=== PATIENT | female | born 1985 | race Caucasian/White ===

== ENCOUNTER 2017-08-09 11:21 | Day surgery (SDC) | payer OTHER ==
[2017-08-09] MEDS ORDERED: Lactated Ringers 1,000 ML IV ONE (11:22)
[2017-08-09] MEDS ORDERED: solu-MEDROL 40 MG IV ONE (11:22)
[2017-08-09] MEDS ORDERED: Xylocaine 1% Vial 30 ML PF IJ ONE (11:22)
[2017-08-09] MEDS ORDERED: DIPRIVAN 200 MG/20 ML IV ONE (11:22)
--- NOTE | 2017-08-09 14:13 | XRAY ---
37 seconds fluoroscopy time in surgery for right L5 BREANNA.
--- NOTE | 2017-08-09 14:14 | XRAY ---
Indication: Right L5 BREANNA. Intraoperative fluoroscopy was provided for 37 seconds. Single digital spot image submitted for interpretation demonstrates a single posterior spinal needle tip projecting over the right L5-S1 facet. Small amount contrast injected for needle tip placement. Correlate with intraoperative findings/report.
--- NOTE | 2017-08-10 10:00 | OP ---
DATE OF PROCEDURE: 08/09/2017 1214 SURGEON: Giovany King D.O. PREOPERATIVE DIAGNOSES: Degenerative lumbar spine disease, lumbar spondylosis. POSTOPERATIVE DIAGNOSES: Degenerative lumbar spine disease, lumbar spondylosis. PROCEDURE PERFORMED: Right L5 epidural steroid injection under fluoroscopic guidance. DESCRIPTION OF PROCEDURE: The patient was taken to the operating room and laid in the prone position on the table. Skin over the injection site was prepped and draped in sterile fashion. Under fluoroscope bony anatomy at the targeted injection site was visualized. Induction agent was given as per anesthesia while vital signs were monitored. Local anesthetic agent was introduced to anesthetize the skin in the subcutaneous tissue through injection site. Local anesthetic agent used 1 cc of preservative-free Solu-Medrol and 10 cc of 1% preservative-free lidocaine was injected into each of the target epidural space. Under fluoroscopic guidance a #22-gauge standard spinal needle was advanced into the target epidural space. While the needle was being removed normal saline was simultaneously infiltrated to avoid sterile needle tract. Skin was cleansed with alcohol and then a bandage was applied. The preoperative pain level was 10 out of 10 and the postoperative pain level was 2 out of 10. No complications or adverse consequences were observed. The patient was returned to the holding area until stabilized before discharge to home. The patient will be followed up within ten days after the injection for reevaluation.
== END 2017-08-09 12:50 | disposition home or self-care (01) ==
LOC: SDC-PAIN 11:21
PROVIDERS: ATTEND Internal Medicine
DX: M54.5 Low back pain (principal); M51.16 Intervertebral disc disorders with radiculopathy, lumbar region; M46.96 Unspecified inflammatory spondylopathy, lumbar region; Z79.891 Long term (current) use of opiate analgesic
CPT/HCPCS: 64483; 72020; 77003; J2001; J2704; J2920; Q9967

== ENCOUNTER 2019-07-24 16:01 | Emergency (ER) | payer BC ==
[2019-07-24 16:20] VITALS: PULSE 100; O2SAT 99
--- NOTE | 2019-07-24 16:28 | ERPHSYRPT ---
- History of Present Illness Time Seen by Provider: 07/24/19 16:13 Source: patient Exam Limitations: no limitations Patient Subjective Stated Complaint: pt woke this morning and her left ring finger was swollen and her rings would not come off, pt attempted various ways to remove and came to the ER to have them cut off Triage Nursing Assessment: Pt came to the ER to have her rings removed, vitals wnl, left ring finger swollen and red, has a wedding band and engagement ring on the finger, capillary refill normal, no other issues at this time Physician History: 33 years old female presented in the ER with a chief complaint of finger swelling and inability to take off her wedding ring from left fourth digit because of swelling. She is complaining of dull aching pain and more swelling distal to the ring. She also has swelling in other fingers as well. Patient wants ring to be cut off. Before I went to the room patient ring was cut off by an RN. Has no difficulty movements of fingers but some tightness in all fingers. Denies any history of congestive heart failure or shortness of breath but does report oftentimes her legs get swollen which goes away on its own. Not taking any diuretics. Allergies/Adverse Reactions: No Known Drug Allergies Allergy (Verified 07/24/19 16:20) Home Medications: Gabapentin [Neurontin] 300 mg PO TID 07/17/17 [History] Dextroamphetamine/Amphetamine [Adderall 20 mg Tablet] 20 mg PO DAILY 07/24/19 [ History] Hx Influenza Vaccination/Date Given: No Hx Pneumococcal Vaccination/Date Given: No Travel Risk - International Travel Have you traveled outside of the country in past 3 weeks: No Have you or anyone close to you been diagnosed with or: No Do your reside in a community with a known COVID-19 case?: Yes If Yes where:: [place] - Coronavirus Screening Has patient experienced Coronavirus symptoms: No - Review of Systems Constitutional: No Symptoms Eyes: No Symptoms Ears, Nose, & Throat: No Symptoms Respiratory: No Symptoms Cardiac: No Symptoms Abdominal/Gastrointestinal: No Symptoms Skin: No Symptoms Neurological: No Symptoms Psychological: No Symptoms Endocrine: No Symptoms Hematologic/Lymphatic: No Symptoms Immunological/Allergic: No Symptoms - Past Medical History Pertinent Past Medical History: Yes Neurological History: No Pertinent History ENT History: No Pertinent History Cardiac History: No Pertinent History Respiratory History: No Pertinent History Endocrine Medical History: No Pertinent History Musculoskeletal History: Arthritis GI Medical History: No Pertinent History History: No Pertinent History Psycho-Social History: No Pertinent History Female Reproductive Disorders: No Pertinent History - Past Surgical History Past Surgical History: Yes Neuro Surgical History: No Pertinent History Cardiac: No Pertinent History Respiratory: No Pertinent History Gastrointestinal: No Pertinent History Genitourinary: No Pertinent History Musculoskeletal: No Pertinent History Female Surgical History: Section Other Surgical History: c-sections times 3 - Social History Smoking Status: Current every day smoker How long have you smoked: 10 years Exposure to second hand smoke: Yes Drug Use: none Patient Lives Alone: No - Female History Hx Now: No - Nursing Vital Signs Nursing Vital Signs: Initial Vital Signs Temperature 98.5 F 07/24/19 16:07 Pulse Rate 100 H 07/24/19 16:07 Blood Pressure 141/109 07/24/19 16:07 O2 Sat by Pulse Oximetry 99 07/24/19 16:07 Pain Scale Pain Intensity 2 - Physical Exam General Appearance: no apparent distress Eyes, Ears, Nose, Throat Exam: normal ENT inspection Neck Exam: normal inspection, supple, full range of motion Cardiovascular/Respiratory Exam: normal breath sounds, regular rate/rhythm Shoulder Exam: normal inspection Elbow/Forearm Exam: normal inspection, non-tender, no evidence of injury Wrist Exam: normal inspection, non-tender, no evidence of injury Hand Exam: normal ROM, swelling (All fingers mild to moderate swelling but more on the left fourth digit with small area of abrasion, ring is off.) Neuro/Tendon Exam: normal sensation Mental Status Exam: alert, oriented x 3 Skin Exam: normal color, abrasion SpO2 Interpretation: normal SpO2: 99 O2 Delivery: Room Air - Course Nursing assessment & vital signs reviewed: Yes - Progress Progress: improved, pain not gone completely, re-examined Progress Note: 07/24/19 16:26 Patient presented in the ER with swollen fingers and inability to take off her ring. Ring is cut by RN before I went in the room. She is able to move fingers without any limitation. She does have some swelling. She is advised to keep it elevated, low-salt diet and outpatient follow-up for further evaluation. She has a small abrasion and bandages applied. Discussed signs symptoms of worsening needing return which she seems understanding. Stable for discharge. Counseled pt/family regarding: need for follow-up - Departure Departure Disposition: Home Clinical Impression: Swelling of finger Condition: Stable Critical Care Time: No Referrals: LOGAN BRICEÑO [Primary Care Provider] - Follow Up with PCP/3 days Additional Instructions: Take Tylenol as needed for pain. Keep it elevated. Apply ice. Low-salt diet. Follow-up with primary care for reevaluation. Return to ER for any worsening.
[2019-07-24 16:39] VITALS: BP 118/81
== END 2019-07-24 16:39 | disposition home or self-care (01) ==
LOC: ED 16:01
DX: M79.89 Other specified soft tissue disorders (principal); W23.0XXA Caught, crushed, jammed, or pinched between moving objects, initial encounter; Y92.89 Other specified places as the place of occurrence of the external cause
CPT/HCPCS: 99283

== ENCOUNTER 2024-07-30 06:32 | Day surgery (SDC) | payer OTHER ==
[2024-07-30] MEDS ORDERED: Lactated Ringers 1,000 ML IV ONE (07:14)
[2024-07-30] MEDS ORDERED: CEFAZOLIN 2 GM/100 ML NaCl 2 GM/100 ML IVPB IV ONE (07:14)
[2024-07-30] MEDS ORDERED: CEFAZOLIN IV ONE (07:15)
[2024-07-30] MEDS: Lactated Ringers 1,000 ML IV SCH (07:15)
[2024-07-30] MEDS ORDERED: SODIUM CHLORIDE IV ONE (07:15)
[2024-07-30] MEDS: CEFAZOLIN 2 GM/100 ML NaCl 2 GM/100 ML IVPB IV SCH (07:16)
[2024-07-30 07:17] LABS: HCG URINE TEST NEGATIVE (NEGATIVE)
[2024-07-30] MEDS ORDERED: Sodium Chloride 0.9% 1000 ML 1,000 ML ONE (08:56)
[2024-07-30] MEDS ORDERED: dexAMETHasone sodium phosphate ONE (09:02)
[2024-07-30] MEDS ORDERED: TORAdol 30 mg Injection ONE (09:02)
[2024-07-30] MEDS ORDERED: propofoL IV ONE (09:02)
[2024-07-30] MEDS ORDERED: Zofran 4 MG/2 ML VIAL ONE (09:02)
[2024-07-30 09:47] VITALS: PULSE 75; RESP 16; TEMP 96.3
[2024-07-30 10:04] VITALS: BP 125/90; O2SAT 97
--- NOTE | 2024-08-01 10:45 | OP ---
SURGERY DATE/TIME: 07/30/2024 [id number] PREOPERATIVE DIAGNOSIS: Menorrhagia. POSTOPERATIVE DIAGNOSIS: Menorrhagia. PROCEDURE: Hysteroscopy, dilation and curettage, with NovaSure ablation. SURGEON: Fabiano Nevarez DO SUPERVISOR MARBLE: Ana Winn. ANESTHESIA: General. ESTIMATED BLOOD LOSS: Minimal. COMPLICATIONS: None. INDICATIONS: The risks, benefits, indications, and alternatives of the procedure were reviewed with the patient prior to the procedure. The patient understood the risks of infection, bleeding, bowel injury, bladder injury, ureteral injury, uterine perforation, pelvic infection, and thromboembolic disorder associated with the surgery and desired to have the surgery as a possible means to alleviate her current medical condition. DESCRIPTION OF PROCEDURE AND FINDINGS: At this point, the patient was taken to the operating room, given general sedation, placed in dorsal lithotomy position, prepped and draped in the usual sterile fashion. A weighted speculum was then placed in the patient's vagina and the cervix was then dilated with endocervical dilators as a means to dilate the cervix, and at this point a tenaculum was then placed on the anterior lip of the cervix where at this point a 5 mm hysteroscope was then placed through the endocervical region toward the fundal region where visualization appeared to be within normal limits and no gross abnormalities noted. The hysteroscope was then removed and a curette was then placed into the fundus of the uterus where a curettage was performed in all quadrants of the uterus, retrieving a mild to moderate amount of tissue. After curettage was performed, the NovaSure instrument was then taken and placed through the endocervical region toward the fundal region, retracted approximately 1 cm, and the machine was engaged with a length of 6.5 cm and a width of 3.7 cm. The machine was turned off an ablative time of 51 seconds. At this point, there was no bleeding that was noted. The machine was disengaged and removed from the uterine cavity without complication. All instruments were then removed from the patient's vaginal region. The patient was then taken out of the dorsal lithotomy position, was taken out of anesthesia, and was then taken to the recovery room in stable condition. All instruments and laps were accounted for x2.
== END 2024-07-30 10:10 | disposition home or self-care (01) ==
LOC: SDC 06:32
PROVIDERS: ATTEND Obstetrics & Gynecology
DX: N92.0 Excessive and frequent menstruation with regular cycle (principal)
CPT/HCPCS: 58563; 81025; J0690; J1100; J1885; J2405; J2704